=== PATIENT | male | born 1960 | race Caucasian/White ===

== ENCOUNTER 2017-04-14 12:06 | Emergency (ER) | payer OTHER ==
[~2017-04-14] VITALS: Ht 190.5 cm; Wt 103.5 kg
[2017-04-14 12:19] VITALS: Ht 190.5 cm; Wt 103.5 kg
[2017-04-14] MEDS ORDERED: GUAI-106 PO (13:21)
[2017-04-14] MEDS ORDERED: D-ME473S2 PO (13:21)
[2017-04-14] MEDS ORDERED: AZIT250T94 PO (13:21)
--- NOTE | 2017-04-14 13:27 | ERD ---
ER Documentation Chief Complaint Date/Time DATE: 04/14/17 TIME: 13:25 Chief Complaint cough/congestion since thursday; facial pain HPI 56-year-old male with a history of gastrointestinal cancer, status post small intestinal mass removal in 2016, presents the emergency department complaining of sore throat, sinus congestion, facial pain, and cough 3 days. Patient states his symptoms began with a sore throat progressed to sinus congestion and intermittent productive cough. Patient also notes intermittent fever but denies chills. Last antipyretic was administered 1 day ago. Patient has a history of bronchitis and is currently taking the medication Gleevec for control of his gastrointestinal cancer. He notes a history of chronic anemia for which she is being managed by his lithographic camera operator. Last visit was 2 weeks ago and lab results were stable at that time. Patient has follow-up scheduled with his lithographic camera operator within the next month. Patient denies weakness, weight loss, nausea, hematuria, vomiting, diarrhea, or abdominal pain. ROS All systems reviewed and are negative except as per history of present illness. Medications Home Meds Active Scripts Dextromethorphan Hb-Promethazine Hcl* (Promethazine DM* Syrup) 473 Ml Syrup, 5 ML PO Q6 Y for COUGH for 7 Days, ML Prov:ATILIO MAGAÑA PA-C 04/14/17 Guaifenesin/Pseudoephedrne HCl (Mucinex D ER 1,200-120 mg Tab) 1 Each Tab.er.12h , 2 EACH PO QAM for 5 Days, TAB Prov:ATILIO MAGAÑA PA-C 04/14/17 Azithromycin* (Zithromax*) 250 Mg Tablet, 250 MG PO .CLEMENCIA DIRECTED, #6 TAB TAKE 500 MG (2 TABS) THE FIRST DAY THEN 250 MG (1 TAB) DAYS 2-5 Prov:ATILIO MAGAÑA PA-C 04/14/17 PMhx/Soc Medical and Surgical Hx: pt denies Medical Hx, pt denies Surgical Hx Hx Alcohol Use: No Hx Substance Use: No Hx Tobacco Use: No Smoking Status: Never smoker Physical Exam Vitals Vital Signs Date Time Temp Pulse Resp B/P Pulse Ox O2 Delivery O2 Flow Rate FiO2 04/14/17 12:19 100.1 95 18 132/84 98 Physical Exam Const: Well developed, well-nourished, no acute distress Head: Atraumatic Eyes: Normal Conjunctiva ENT: Normal External Ears, Nose and Mouth. Posterior pharynx non- erythematous and without evidence of tonsillar swelling or exudate. Neck: Full range of motion..~ No meningismus. Resp: Clear to auscultation bilaterally, no wheezes, rhonchi, rales Cardio: Regular rate and rhythm, no murmurs Abd: Soft, non tender, non distended. Normal bowel sounds Skin: Patient mildly jaundice with evidence of conjunctival pallor. Patient states this is normal for him and unchanged. Otherwise no petechiae or rashes Back: No midline or flank tenderness Ext: No cyanosis, or edema Neur: Awake and alert Psych: Normal Mood and Affect Procedures/MDM This is a 56-year-old male with a history of gastrointestinal cancer, who is currently under the management of a lithographic camera operator and is taking Gleevec for cancer suppression. Patient presents with a 3 day history of progressive upper respiratory symptoms including sore throat, sinus congestion, facial pain and productive cough. Patient was noted to have slight jaundice and pallor, however patient states this is chronic and unchanged. He denies any increased symptoms of weakness, pain, hematuria, abdominal pain, nausea, vomiting or uncontrollable fever. The patient's clinical presentation is very consistent with cough and sinus congestion which is likely the result of an acute viral syndrome, however, due to the patient's history of bronchitis, and immunosuppression, I will be prescribing the patient a Z-Flaquito in addition to a decongestant. Patient to continue Tylenol and Motrin for fever control. Patient to follow-up with lithographic camera operator as previously scheduled. The patient does not exhibit any clinical signs or symptoms concerning for serious bacterial infection or systemic illness. Based on history and clinical exam findings the patient does not appear to have evidence of pneumonia, strep pharyngitis, urinary tract infection, bacteremia, sepsis, or meningitis. For these reasons I do not believe it is necessary to obtain laboratory testing or diagnostic imaging. I believe it would be appropriate for symptom control, and close outpatient primary care follow-up. Patient's fever was well controlled with 1 dose of Tylenol in the emergency department. Based on patient's history of present illness and physical examination the decision was made to discharge. The patient was re-evaluated after ED treatment and stabilizing measures, and symptoms have improved. There is no evidence of life threatening injuries or illnesses at this time. On re-examination, patient resting in no distress, stable vital signs, reports feeling better and safe for discharge with outpatient follow up with PMD in 1-2 days. Patient given return precautions. Departure Diagnosis: Primary Impression: Sore throat Additional Impressions: Congestion of upper airway Cough Condition: Good Patient Instructions: Sinusitis, Abx Tx Additional Instructions: Call your primary care doctor TOMORROW for an appointment during the next 1-2 days.See the doctor sooner or return here if your condition worsens before your appointment time. ATILIO MAGAÑA PA-C Apr 14, 2017 13:27
[2017-04-14] MEDS ORDERED: ACETAMINOPHEN 325 MG TAB PO ONE (13:30)
== END 2017-04-14 14:10 | disposition home or self-care (01) ==
LOC: FTE 12:06
DX: J02.9 Acute pharyngitis, unspecified (principal); J98.8 Other specified respiratory disorders; Z85.00 Personal history of malignant neoplasm of unspecified digestive organ
CPT/HCPCS: 99284